=== PATIENT | male | born 1980 ===

== ENCOUNTER 2021-09-09 13:37 | Emergency (ER) | payer OTHER, SELFPAY ==
[2021-09-09 14:00] VITALS: BP 136/73; PULSE 71; RESP 18; TEMP 37.2; O2SAT 99
--- NOTE | 2021-09-09 14:03 | ECG_ITS ---
Measurements Intervals [place] Rate: 67 P: 56 AR: 160 QRS: 88 QRSD: 103 T: 45 QT: 358 QTc: 379 Interpretive Statements SINUS RHYTHM NORMAL ECG Electronically Signed On 09-09-2021 14:48:09 COMPUTER ANALYST by Sandeep Felder D.O.
--- NOTE | 2021-09-09 17:39 | PC.NURSE ---
pt not in lobby when called for room
== END 2021-09-10 03:36 | disposition left against medical advice (07) ==
LOC: ANHED 17:52
PROVIDERS: Emergency Provider Emergency Medicine
DX: R55 Syncope and collapse (principal)
CPT/HCPCS: 93005; 99199